=== PATIENT | male | born 1940 | race Caucasian/White ===

== ENCOUNTER 2023-03-29 12:43 | Emergency (ER) | payer BC, MEDICARE ==
[2023-03-29 12:52] LABS: BASOPHILS ABSOLUTE AUTO 0.06 K/uL (0.00-0.10); BASOPHILS PERCENT AUTO 0.7 % (0.1-1.3); EOSINOPHILS ABSOLUTE AUTO 0.25 K/uL (0.00-0.40); EOSINOPHILS PERCENT AUTO 2.7 % (0.0-5.4); HEMATOCRIT 32.2 % (38.4-49.7); IMMATURE GRAN ABSOLUTE AUTO 0.05 K/uL (0.00-0.23); IMMATURE GRAN PERCENT AUTO 0.5 % (0.0-0.7); LYMPHOCYTES PERCENT AUTO 16.5 % (11.4-47.7); MEAN CORPUSCULAR HGB CONC 34.2 g/dL (31.6-35.5); MEAN CORPUSCULAR VOLUME 99.4 fL (81.4-99.0); MONOCYTES ABSOLUTE AUTO 0.91 K/uL (0.20-0.90); NEUTROPHILS ABSOLUTE AUTO 6.34 K/uL (1.0-7.6); NEUTROPHILS PERCENT AUTO 69.6 % (40.0-78.1); PLATELET COUNT,PLT 233 K/uL (130-375); RED BLOOD CELL COUNT 3.24 M/uL (4.14-5.76); WHITE BLOOD CELL COUNT,WBC 9.1 K/uL (3.2-11.0)
[2023-03-29] MEDS ORDERED: Sodium Chloride 0.9% 1,000 ML IV SCH (13:00)
[2023-03-29 13:15] LABS: A/G RATIO 1.2 (1.2-2.2); ALANINE AMINOTRANSFERASE,ALT 23 U/L (12-78); ALBUMIN 3.4 g/dL (3.4-5.0); ALKALINE PHOSPHATASE 50 U/L (46-116); ASPARTATE AMNIOTRANSFERASE,AST 22 U/L (15-37); BILIRUBIN TOTAL 0.7 mg/dL (0.2-1.0); BLOOD UREA NITROGEN,BUN 41 mg/dL (7-18); CARBON DIOXIDE,CO2 21 mmol/L (21-32); CHLORIDE,CL 105 mmol/L (100-108); CREATININE 2.5 mg/dL (0.8-1.3); ESTIMATED GFR 25 mL/min (>60); GLUCOSE RANDOM 126 mg/dL (74-106); POTASSIUM,K 4.3 mmol/L (3.6-5.2); PROTEIN TOTAL,TP 6.3 g/dL (6.4-8.2); SODIUM,NA 138 mmol/L (140-148)
[2023-03-29 13:16] LABS: ANION GAP 16.3 mmol/L (5.0-14.0)
[2023-03-29 13:48] LABS: APPEARANCE,URINE SLIGHTLY CLOUDY (CLEAR); BILIRUBIN,URINE NEGATIVE (NEGATIVE); COLOR,URINE YELLOW (YELLOW); GLUCOSE,URINE NEGATIVE (NEGATIVE); KETONES,URINE NEGATIVE (NEGATIVE); LEUKOCYTE ESTERASE,URINE NEGATIVE (NEGATIVE); NITRITE,URINE NEGATIVE (NEGATIVE); OCCULT BLOOD,URINE NEGATIVE (NEGATIVE); PROTEIN,URINE 30 mg/dL (NEGATIVE); UROBILINOGEN,URINE 0.2 EU/dL (0.2-1.0)
[2023-03-29] MEDS ORDERED: Bacitracin Oint 1 GM U/D Packet TOP ONE (13:50)
[2023-03-29] MEDS ORDERED: Lidocaine 1% 10 ML MDV INJECT ONE (13:50)
[2023-03-29 13:54] LABS: AMORPHOUS SEDIMENT,URINE NOT SEEN; BACTERIA,URINE FEW; EPITHELIAL CELLS,URINE RARE; MUCUS,URINE FEW; RBC,URINE 0-5 (0-5); WBC,URINE 0-5 (0-5)
== END 2023-03-29 16:05 | disposition home or self-care (01) ==
LOC: JP.ED 12:43
DX: S01.01XA Laceration without foreign body of scalp, initial encounter (principal); I95.9 Hypotension, unspecified; E86.0 Dehydration; N28.9 Disorder of kidney and ureter, unspecified; I49.9 Cardiac arrhythmia, unspecified; Z88.8 Allergy status to other drugs, medicaments and biological substances; Z79.82 Long term (current) use of aspirin; Z79.02 Long term (current) use of antithrombotics/antiplatelets; Z79.899 Other long term (current) drug therapy; W18.09XA Striking against other object with subsequent fall, initial encounter
CPT/HCPCS: 12002; 36415; 70450; 71045; 80053; 81001; 84484; 85025; 93005; 96360; 96361; 99284; J7030